=== PATIENT | male | born 1965 ===

== ENCOUNTER 2017-07-01 07:48 | Day surgery (SDC) | payer MEDICAID ==
[2017-07-01] MEDS ORDERED: Lactated Ringer's 1,000 ML IV ONE (08:16)
[2017-07-01] MEDS ORDERED: Propofol 10 mg/ml Inj (20 ML) ONE (10:02)
[2017-07-01] MEDS ORDERED: Lidocaine 2% MPF (5 ml) Inj ONE (10:02)
[2017-07-01 10:25] VITALS: TEMP 96.9
[2017-07-01 10:51] VITALS: BP 112/73; PULSE 67; RESP 17; O2SAT 100
== END 2017-07-01 10:53 | disposition home or self-care (01) ==
LOC: H.ENDO 07:48
PROVIDERS: ATTEND Internal Medicine Gastroenterology
DX: K30 Functional dyspepsia (principal); I10 Essential (primary) hypertension; K22.8 Other specified diseases of esophagus; K21.0 Gastro-esophageal reflux disease with esophagitis; K31.9 Disease of stomach and duodenum, unspecified; K29.50 Unspecified chronic gastritis without bleeding
CPT/HCPCS: 43239; 88305; J2704; J7120